=== PATIENT | male | born 1980 | race African-American/Black ===

== ENCOUNTER 2016-12-28 21:30 | Emergency (ER) | payer OTHER ==
[2016-12-28 21:50] VITALS: BMI 24.4
--- NOTE | 2016-12-28 22:27 | PDOC ---
History of Present Illness - General History Source: Patient Exam Limitations: No Limitations - History of Present Illness Initial Comments: 12/28/16 22:27 Patient is a 36-year-old male no significant medical history currently on no medication reports that he has been drinking since 10 AM, smoked a "large amount of marijuana" now complaining of "my throat feels like it's closing and my left arm feels ". Taken to emergency department by family members who were concerned because patient was pacing in the house, and not acting his normal self. Patient denies any chest pain or shortness of breath. Past Medical History: Denies. Allergies: No known allergies Medications: None Family History: Non-contributory Social History: Denies smoking, alcohol use, or IVDU Review of Systems GENERAL/CONSTITUTIONAL: No fever or chills. No weakness. No weight change. HEAD, EYES, EARS, NOSE AND THROAT: No change in vision. No ear pain or discharge. Throat discomfort CARDIOVASCULAR: No chest pain or shortness of breath. RESPIRATORY: No cough, wheezing, or hemoptysis. GASTROINTESTINAL: No nausea, vomiting, diarrhea or constipation. No rectal bleeding. GENITOURINARY: No dysuria, frequency, or change in urination. MUSCULOSKELETAL: No joint or muscle swelling or pain. No neck or back pain. Describe left arm as "feeling " SKIN : No rash or easy bruising. NEUROLOGIC: No headache, vertigo, loss of consciousness, or loss of sensation. PSYCHIATRIC: No depression or anxiety. ENDOCRINE: No increased thirst. No abnormal weight change. HEMATOLOGIC/LYMPHATIC: No anemia, easy bleeding, or history of blood clots. ALLERGIC/IMMUNOLOGIC: No hives or skin allergy. No latex allergy. Physical Exam: GENERAL: The patient is awake, alert, and fully oriented, in no acute distress. HEAD: Normal with no signs of trauma. EYES: Pupils equal, round and reactive to light, extraocular movements intact, sclera anicteric, conjunctiva clear. ENT: Ears normal, nares patent, oropharynx clear without exudates. Moist mucous membranes. No uvula deviation NECK: Normal range of motion, supple without lymphadenopathy, JVD, or masses. LUNGS: Breath sounds equal, clear to auscultation bilaterally. No wheezes, and no crackles. HEART: Regular rate and rhythm, normal S1 and S2 without murmur, rub or gallop. ABDOMEN: Soft, nontender, normoactive bowel sounds. No guarding, no rebound. No masses. No bruising or abrasions MUSCULOSKELETAL: Normal range of motion, no edema. No clubbing or cyanosis. No cords, erythema, or tenderness. No CVA Tenderness with fist. NEUROLOGICAL: Cranial nerves II through XII grossly intact. Normal speech, normal gait. PSYCH: Intoxicated SKIN: Warm, Dry, normal turgor, no rashes or lesions noted. <Rachana Meneses - Last Filed: 12/28/16 22:47> <Aruna Ling - Last Filed: 12/29/16 00:27> <Torey Johnson - Last Filed: 12/29/16 02:29> - General Chief Complaint: Sore Throat Stated Complaint: Throat PAIN Time Seen by Provider: 12/28/16 21:54 Past History - Psycho/Social/Smoking Cessation Hx Anxiety: No Suicidal Ideation: No Smoking History: Current every day smoker Have you smoked in the past 12 months: Yes Number of Cigarettes Smoked Daily: 10 Information on smoking cessation initiated: No Hx Alcohol Use: Yes (SOCIAL) Drug/Substance Use Hx: No Substance Use Type: None <Rachana Meneses - Last Filed: 12/28/16 22:47> <Aruna Ling - Last Filed: 12/29/16 00:27> <Torey Johnson - Last Filed: 12/29/16 02:29> - Past Medical History Allergies/Adverse Reactions: Allergies Allergy/AdvReac Type Severity Reaction Status Date / Time No Known Allergies Allergy Verified 12/28/16 21:41 Home Medications: Ambulatory Orders Pantoprazole Sodium [Protonix] 40 mg PO DAILY #14 tablet. 12/29/16 *Physical Exam - Vital Signs Last Vital Signs Temp Pulse Resp BP Pulse Ox 98.4 F 92 H 16 140/85 98 12/28/16 21:43 12/28/16 21:43 12/28/16 21:43 12/28/16 21:43 12/28/16 21:43 <Rachana Meneses - Last Filed: 12/28/16 22:47> - Vital Signs Last Vital Signs Temp Pulse Resp BP Pulse Ox 98.4 F 92 H 16 140/85 98 12/28/16 21:43 12/28/16 21:43 12/28/16 21:43 12/28/16 21:43 12/28/16 22:31 <SushilAruna - Last Filed: 12/29/16 00:27> - Vital Signs Last Vital Signs Temp Pulse Resp BP Pulse Ox 98.2 F 85 17 138/82 99 12/29/16 02:08 12/29/16 02:08 12/29/16 02:08 12/29/16 02:08 12/29/16 02:08 <Torey Johnson - Last Filed: 12/29/16 02:29> Heart Score/ECG Review #1 12/29/16 00:27 Normal sinus rhythm at 64 bpm Normal ECG <SushilAruna - Last Filed: 12/29/16 00:27> ED Treatment Course - LABORATORY CBC & Chemistry Diagram: 12/28/16 23:15 12/28/16 23:19 - ADDITIONAL ORDERS Additional order review: Laboratory Results 12/28/16 12/28/16 23:19 23:15 INR 1.00 Sodium 139 Potassium 4.4 Chloride 103 Carbon Dioxide 27 Anion Gap 9 BUN 17 Creatinine 1.1 Creat Clearance w eGFR > 60 Random Glucose 94 Calcium 9.3 Total Bilirubin 0.4 AST 22 ALT 27 Alkaline Phosphatase 66 Creatine Kinase 169 Troponin I < 0.02 Total Protein 7.4 Albumin 4.1 12/28/16 23:15 RBC 5.01 MCV 91.4 MCHC 33.3 RDW 13.8 MPV 9.3 Neutrophils % 62.9 Lymphocytes % 24.4 Monocytes % 11.1 H Eosinophils % 0.5 Basophils % 1.1 <SushilAruna - Last Filed: 12/29/16 00:27> - LABORATORY CBC & Chemistry Diagram: 12/28/16 23:15 12/28/16 23:19 - ADDITIONAL ORDERS Additional order review: Laboratory Results 12/28/16 12/28/16 12/28/16 23:19 23:19 23:15 INR 1.00 Sodium 139 Potassium 4.4 Chloride 103 Carbon Dioxide 27 Anion Gap 9 BUN 17 Creatinine 1.1 Creat Clearance w eGFR > 60 Random Glucose 94 Calcium 9.3 Total Bilirubin 0.4 AST 22 ALT 27 Alkaline Phosphatase 66 Creatine Kinase 169 Creatine Kinase Index CK-MB (CK-2) < 1.000 CK-MB (CK-2) Rel Index Cancelled Troponin I < 0.02 Total Protein 7.4 Albumin 4.1 12/28/16 23:15 RBC 5.01 MCV 91.4 MCHC 33.3 RDW 13.8 MPV 9.3 Neutrophils % 62.9 Lymphocytes % 24.4 Monocytes % 11.1 H Eosinophils % 0.5 Basophils % 1.1 <Torey Johnson - Last Filed: 12/29/16 02:29> Medical Decision Making - Medical Decision Making 12/28/16 22:48 A/P: Patient was initially sent to fast-track however admits to being intoxicated and the influence of marijuana. Complaining of throat feeling that it is closing and his left arm "feeling " sent to main emergency department for higher level of care. <Rachana Meneses - Last Filed: 12/28/16 22:47> *DC/Admit/Observation/Transfer <Rachana Meneses - Last Filed: 12/28/16 22:47> <Aruna Ling - Last Filed: 12/29/16 00:27> <Torey Johnson - Last Filed: 12/29/16 02:29> Diagnosis at time of Disposition: Sore throat, Arm paresthesia, left - Discharge Dispostion Disposition: HOME Condition at time of disposition: Stable - Prescriptions Prescriptions: Pantoprazole Sodium [Protonix] 40 mg PO DAILY #14 tablet.dr - Referrals Referrals: [facility] [Provider Group] - Patient Instructions Printed Discharge Instructions: Sore Throat, DI for Gastroesophageal Reflux Disease (GERD), DI for Numbness/tingling
[2016-12-28 23:22] LABS: BASOPHIL 1.1 % (0-2.0); EOSINOPHIL 0.5 % (0-4.5); MCH 30.5 pg (25.7-33.7); MCHC 33.3 g/dl (32.0-35.9); MEAN CELL VOLUME 91.4 fl (80-96); MEAN PLT VOLUME 9.3 fl (7.5-11.1); NEUTROPHILS 62.9 % (42.8-82.8); PLATELET COUNT 212 K/MM3 (134-434); RDW 13.8 % (11.9-15.9); WHITE BLOOD COUNT 6.7 K/mm3 (4.0-10.0)
[2016-12-28 23:47] LABS: PLATELET ESTIMATE ADEQUATE (NORMAL)
[2016-12-28 23:53] LABS: ALBUMIN 4.1 g/dl (3.4-5.0); ANION GAP 9 (8-16); BILIRUBIN,TOTAL 0.4 mg/dL (0.2-1.0); CALCIUM 9.3 mg/dL (8.5-10.1); CO2 27 mmol/L (21-32); CREATININE 1.1 mg/dL (0.7-1.3); GLUCOSE,RANDOM 94 mg/dL (74-106); SGOT/AST 22 U/L (15-37); SGPT/ALT 27 U/L (12-78); TOT PROT 7.4 g/dl (6.4-8.2)
[2016-12-28 23:55] LABS: ALK PHOS 66 U/L (45-117); TROPONIN I < 0.02 ng/ml (0.00-0.05)
--- NOTE | 2016-12-29 01:53 | PDOC ---
*Physical Exam - Vital Signs Last Vital Signs Temp Pulse Resp BP Pulse Ox 98.4 F 92 H 16 140/85 98 12/28/16 21:43 12/28/16 21:43 12/28/16 21:43 12/28/16 21:43 12/28/16 22:31 - Physical Exam Comments: 12/29/16 01:49 Patient was initially seen in fast track and referred to the main ER for further evaluation and treatment. Patient is a 36-year-old male with history of laryngeal reflux and polysubstance abuse who presents to the ER with a globus sensation and paresthesias of the left arm after consuming a large amount of alcohol and smoking a large amount of marijuana. Patient reports that he became distressed and anxious after he was laid off for more. Patient denies chest pain/nausea/ vomiting/diarrhea/abdominal pain. Patient denies dysphagia or odontophagia. Patient is able to tolerate his own secretions. There is no family history of early cardiac . Patient denies suicidal/homicidal ideations. REVIEW OF SYSTEMS CONSTITUTIONAL: No fever, no chills, no fatigue EYES: No visual changes ENT: No ear pain, + sore throat CARDIOVASCULAR: No chest pain, no palpitations RESPIRATORY: No cough, no SOB GI: No abdominal pain, no nausea, no vomiting, no constipation, no diarrhea GENITOURINARY: No dysuria, no frequency, no hematuria MUSKULOSKELETAL: No backpain, no joint pain, no myalgias SKIN: No rash NEURO: No headache; + left arm paresthesias EXAMINATION CONSTITUTIONAL: Awake and alert; well-nourished; alcohol on breath; in no apparent distress HEAD: Normocephalic; atraumatic EYES: PERRL; EOM intact; conjunctiva are injected bilaterally; ENMT: External appears normal; oropharynx is erythematous without tonsillar hypertrophy or exudate; uvula is midline and is nonedematous; there is no stridor; NECK: Supple; non-tender; no cervical lymphadenopathy CARD: Normal S1, S2; no murmurs, rubs, or gallops RESP: Normal chest excursion with respiration; breath sounds clear and equal bilaterally; no wheezes, rhonchi, or rales ABD: Soft, non-distended; non-tender; no palpable organomegaly, no palpable hernias EXT: Normal ROM in all four extremities; non-tender to palpation; distal pulses intact bilaterally to upper and lower extremities SKIN: Warm, dry, no rash NEURO: cranial nerves II through XII are grossly intact; motor is 5 of 54; gait is stable ED Treatment Course - LABORATORY CBC & Chemistry Diagram: 12/28/16 23:15 12/28/16 23:19 - ADDITIONAL ORDERS Additional order review: Laboratory Results 12/28/16 12/28/16 12/28/16 23:19 23:19 23:15 INR 1.00 Sodium 139 Potassium 4.4 Chloride 103 Carbon Dioxide 27 Anion Gap 9 BUN 17 Creatinine 1.1 Creat Clearance w eGFR > 60 Random Glucose 94 Calcium 9.3 Total Bilirubin 0.4 AST 22 ALT 27 Alkaline Phosphatase 66 Creatine Kinase 169 Creatine Kinase Index CK-MB (CK-2) < 1.000 CK-MB (CK-2) Rel Index Cancelled Troponin I < 0.02 Total Protein 7.4 Albumin 4.1 12/28/16 23:15 RBC 5.01 MCV 91.4 MCHC 33.3 RDW 13.8 MPV 9.3 Neutrophils % 62.9 Lymphocytes % 24.4 Monocytes % 11.1 H Eosinophils % 0.5 Basophils % 1.1 Medical Decision Making - Medical Decision Making 12/29/16 01:52 Patient is a 36-year-old male who presents to the ER with globus sensation left arm paresthesias that have now resolved. EKG is within normal limit. Cardiac enzymes are unremarkable. Given the onset of symptoms more than 6 hours, ACS/ acute FL highly unlikely. Patient is able to verbalize without difficulty and there is no evidence of dysphonia or stridor at this time. Will discharge with a 2 week course of Protonix po, and PMD follow-up as needed. Patient also advised that the harm of substance abuse and has expressed understanding. *DC/Admit/Observation/Transfer Diagnosis at time of Disposition: Sore throat, Paresthesia of left upper extremity - Discharge Dispostion Disposition: HOME Condition at time of disposition: Stable - Referrals Referrals: [facility] [Provider Group] - Patient Instructions Printed Discharge Instructions: Sore Throat, DI for Gastroesophageal Reflux Disease (GERD), DI for Numbness/tingling
[2016-12-29 02:09] VITALS: BP 138/82; PULSE 85; TEMP 98.2
--- NOTE | 2016-12-29 16:32 | EKG ---
Test Reason : Blood Pressure : / mmHG Vent. Rate : 064 BPM Atrial Rate : 064 BPM P-R Int : 148 ms QRS Dur : 088 ms QT Int : 366 ms P-R-T Axes : 063 065 046 degrees QTc Int : 377 ms NORMAL SINUS RHYTHM NORMAL ECG NO PREVIOUS ECGS AVAILABLE Confirmed by ALLI CASTELAN MD ([id number]) on 12/29/2016 4:32:17 PM Referred By: Confirmed By:ALLI CASTELAN MD
== END 2016-12-29 02:10 | disposition home or self-care (01) ==
LOC: JER 21:30 → JERFT 21:30 → JER 12-29 02:10
DX: J02.9 Acute pharyngitis, unspecified (principal); R20.8 Other disturbances of skin sensation
CPT/HCPCS: 36415; 80053; 82550; 82553; 84484; 85025; 85610; 93005; 93010; 99283-25

== ENCOUNTER 2018-08-29 14:29 | Inpatient (IN) | payer OTHER ==
[2018-08-29 19:43] VITALS: BMI 23.7
--- NOTE | 2018-08-29 20:55 | HP ---
CIWA Score - Admission Criteria [facility] Guidelines: Admission for Medically Managed Detox: Requires at least one of the followin. CIWA greater than 12 2. Seizures within the past 24 hours 3. Delirium tremens within the past 24 hours 4. Hallucinations within the past 24 hours 5. Acute intervention needed for co occurring medical disorder 6. Acute intervention needed for co occurring psychiatric disorder 7. Severe withdrawal that cannot be handled at a lower level of care (continued vomiting, continued diarrhea, abnormal vital signs) requiring intravenous medication and/or fluids 8. Admission ROS [facility] - HPI Chief Complaint: Seeking admission to Rehab. Allergies/Adverse Reactions: Allergies Allergy/AdvReac Type Severity Reaction Status Date / Time No Known Allergies Allergy Verified 08/29/18 21:13 History of Present Illness: 38 years old male with 5 months of PCP dependence is seeking admission to Rehab. This is his first admission to [facility] and first time in inpatient Rehabilitation facility. He denies past medical history and denies suicide attempt/ ideation at this time. His drug screen result was all negative. Exam Limitations: No Limitations - Ebola screening Have you traveled outside of the country in the last 21 days: No Have you had contact with anyone from an Ebola affected area: No Have you been sick,other than usual withdrawal symptoms: No Do you have a fever: No - Review of Systems Constitutional: No Symptoms Reported EENT: reports: No Symptoms Reported Respiratory: reports: No Symptoms reported Cardiac: reports: No Symptoms Reported GI: reports: No Symptoms Reported : reports: No Symptoms Reported Musculoskeletal: reports: No Symptoms Reported Integumentary: reports: No Symptoms Reported Neuro: reports: No Symptoms reported Endocrine: reports: No Symptoms Reported Hematology: reports: No Symptoms Reported Psychiatric: reports: No Sypmtoms Reported, Mood/Affect Appropiate, Orientated x3 Other Systems: Reviewed and Negative Patient History - Patient Medical History Hx Anemia: No Hx Asthma: No Hx Chronic Obstructive Pulmonary Disease (COPD): No Hx Cancer: No Hx Cardiac Disorders: No Hx Congestive Heart Failure: No Hx Hypertension: No Hx Hypercholesterolemia: No Hx Pacemaker: No HX Cerebrovascular Accident: No Hx Seizures: No Hx Dementia: No Hx Diabetes: No Hx Gastrointestinal Disorders: No Hx Liver Disease: No Hx Genitourinary Disorders: No Hx Sexually Transmitted Disorders: No Hx Renal Disease (ESRD): No Hx Thyroid Disease: No Hx Human Immunodeficiency Virus (HIV): No Hx Hepatitis C: No Hx Depression: No Hx Suicide Attempt: No Hx Bipolar Disorder: No Hx Schizophrenia: No - Patient Surgical History Past Surgical History: No - PPD History Previous Implant?: No Documented Results: Negative w/o proof Implanted On Prior R Admission?: No PPD to be Administered?: Yes - Reproductive History Patient is a Female of Child Bearing Age (11 -55 yrs old): No (MALE) - Smoking Cessation Smoking history: Current every day smoker Have you smoked in the past 12 months: Yes Aproximately how many cigarettes per day: 10 Hx Chewing Tobacco Use: No Initiated information on smoking cessation: Yes 'Breaking Loose' booklet given: 08/29/18 - Substance & Tx. History Hx Alcohol Use: No Hx Substance Use: No Substance Use Type: Tranquilizers Hx Substance Use Treatment: No - Substances Abused PCP Route: Smoking Frequency: 1-2 times per week Amount used: $20 Age of first use: 37 Date of Last Use: 08/15/18 Family Disease History - Family Disease History Family History: Denies Admission Physical Exam [facility] - Vital Signs Vital Signs: Vital Signs - 24 hr 08/29/18 19:41 Temperature 97 F L Pulse Rate 81 Respiratory 18 Rate Blood Pressure 144/85 - Physical General Appearance: Yes: Within Normal Limits HEENTM: Yes: EOMI, Normal ENT Inspection, Normal Voice, SIMA Respiratory: Yes: Lungs Clear, Normal Breath Sounds, No Respiratory Distress Neck: Yes: Supple Breast: Yes: Breast Exam Deferred Cardiology: Yes: Regular Rhythm, Regular Rate Abdominal: Yes: Normal Bowel Sounds Genitourinary: Yes: Within Normal Limits Back: Yes: Normal Inspection Musculoskeletal: Yes: Within Normal Limits Extremities: Yes: Normal Inspection Neurological: Yes: Alert, Normal Mood/Affect Integumentary: Yes: Warm Lymphatic: Yes: Within Normal Limits - Diagnostic (1) PCP dependence Current Visit: Yes Status: Chronic (2) Nicotine dependence Current Visit: Yes Status: Chronic Qualifiers: Nicotine product type: cigarettes Substance use status: uncomplicated Qualified Code(s): F17.210 - Nicotine dependence, cigarettes, uncomplicated Cleared for Admission [facility] - Detox or Rehab [facility] Level of Care: Observation Bed Claeared for Rehab Admission: Yes [facility] Breath Alcohol Content Breath Alcohol Content: 0 Urine Drug Screen - Results Drug Screen Negative: Yes Inpatient Rehab Admission - Rehab Decision to Admit Inpatient rehab admission?: Yes - Initial Determination Are CD services needed?: No Free of communicable disease: Yes Not in need of hospitalization: Yes - Rehab Admission Criteria Previous failed treatment: No Poor recovery environment: Yes Comorbidities: No Lacks judgement: No Patient is meeting Inpatient Rehab admission criteria:: Yes
[2018-08-29] MEDS ORDERED: MAG HYDROX/AL HYDROX/SIMETH 30 ML UNIT-DOSE CUP PO PRN (21:00)
[2018-08-29] MEDS ORDERED: guaiFENesin 200 MG/10 ML 10 ML UNIT-DOSE CUPS PO PRN (21:00)
[2018-08-29] MEDS ORDERED: NICOTINE POLACRILEX 2 MG GUM BC PRN (21:00)
[2018-08-29] MEDS ORDERED: P-EPHED 60MG/TRIPROLIDI 2.5MG TABLET PO PRN (21:00)
[2018-08-29] MEDS ORDERED: MAGNESIUM HYDROX 2400MG/30ML ORAL SUSPENSION 30 ML CUP PO PRN (21:00)
[2018-08-29] MEDS ORDERED: MAGNESIUM CITRATE 300 ML BOTTLE PO PRN (21:00)
[2018-08-29] MEDS ORDERED: IBUPROFEN 400 MG TABLET (FP) PO PRN (21:00)
[2018-08-29] MEDS ORDERED: LOPERAMIDE HCL 2 MG CAPSULE PO PRN (21:00)
[2018-08-29] MEDS ORDERED: ACETAMINOPHEN 325 MG TABLET (FP) PO PRN (21:00)
[2018-08-29] MEDS ORDERED: MENTHOL/PHENOL 1 EACH UD MM PRN (21:00)
[2018-08-29] MEDS ORDERED: MELATONIN 5 MG TABLETS PO PRN (22:00)
[2018-08-30] MEDS ORDERED: TUBERCULIN PPD 5 TU/0.1ML VIAL ID ONE (06:15)
[2018-08-30] MEDS: PRENATAL VITAMINS W/ FOLIC ACID TABLET (FP) PO SCH (10:56)
[2018-08-30] MEDS: BACITRACIN 15 GM TUBE TOPICAL OINTMENT TP SCH (10:56)
[2018-08-30] MEDS: NICOTINE 14 MG/24 HOURS TOPICAL PATCH TD SCH (10:56)
--- NOTE | 2018-08-30 11:03 | EKG ---
Test Reason : Blood Pressure : / mmHG Vent. Rate : 074 BPM Atrial Rate : 074 BPM P-R Int : 148 ms QRS Dur : 084 ms QT Int : 364 ms P-R-T Axes : 071 077 064 degrees QTc Int : 404 ms NORMAL SINUS RHYTHM NORMAL ECG WHEN COMPARED WITH ECG OF 28-DEC-2016 23:42, NO SIGNIFICANT CHANGE WAS FOUND Confirmed by ALLI CASTELAN MD ([id number]) on 08/30/2018 11:02:46 AM Referred By: Confirmed By:ALLI CASTELAN MD
--- NOTE | 2018-08-30 13:32 | PN ---
S Progress Note Note: Patient refusing lab draw this AM. He was called to speak to this provider to discuss reasons her refused and so that I could provide explanations about the need for lab draw for care. Client refused to speak with provider.
[2018-08-30] MEDS: THIAMINE HCL 100 MG TABLET (FP) PO SCH ×2 (22:07)
[2018-08-31] MEDS: BACITRACIN 15 GM TUBE TOPICAL OINTMENT TP SCH (10:17)
[2018-08-31] MEDS: PRENATAL VITAMINS W/ FOLIC ACID TABLET (FP) PO SCH (10:18)
[2018-08-31] MEDS: NICOTINE 14 MG/24 HOURS TOPICAL PATCH TD SCH (10:18)
[2018-08-31] MEDS: THIAMINE HCL 100 MG TABLET (FP) PO SCH (21:39)
[2018-09-01] MEDS ORDERED: BACITRACIN 0.9 GM PACKET TP SCH (10:23)
[2018-09-01] MEDS: PRENATAL VITAMINS W/ FOLIC ACID TABLET (FP) PO SCH (10:59)
[2018-09-01] MEDS: NICOTINE 14 MG/24 HOURS TOPICAL PATCH TD SCH (10:59)
[2018-09-01] MEDS: BACITRACIN 15 GM TUBE TOPICAL OINTMENT TP SCH (12:15)
[2018-09-01] MEDS: THIAMINE HCL 100 MG TABLET (FP) PO SCH (21:46)
[2018-09-02 06:40] VITALS: BP 103/65; PULSE 53; TEMP 97.8
[2018-09-02] MEDS: NICOTINE 14 MG/24 HOURS TOPICAL PATCH TD SCH (10:54)
[2018-09-02] MEDS: PRENATAL VITAMINS W/ FOLIC ACID TABLET (FP) PO SCH (10:54)
--- NOTE | 2018-09-02 17:28 | PN ---
[facility] Progress Note Note: DISCHARGE: Patient left AMA. Did not wait to see provider. Informed that patient left unit alert, oriented, w/ steady gait. Admitted w/ PCP and nicotine use disorder. Patient refused admission labs. Vital Signs - 24 hr 09/02/18 09/02/18 03:30 06:40 Temperature 97.8 F Pulse Rate 53 L Respiratory 18 18 Rate Blood Pressure 103/65 Patient discharged AMA.
== END 2018-09-02 05:20 | disposition left against medical advice (07) | DRG 770 ==
LOC: YASAS 14:29 → Y3W 20:41
PROVIDERS: ADMIT Neuromusculoskeletal Medicine & OMM; ATTEND Neuromusculoskeletal Medicine & OMM
PROC: HZ42ZZZ Group Counseling for Substance Abuse Treatment, Cognitive-Behavioral (ICD-10-PCS; principal; 2018-08-29)
DX: F16.20 Hallucinogen dependence, uncomplicated (principal); F17.210 Nicotine dependence, cigarettes, uncomplicated
CPT/HCPCS: 93005; 93010

== ENCOUNTER 2019-01-11 19:30 | Inpatient (IN) | payer OTHER ==
[2019-01-11 20:51] VITALS: BMI 20.3
--- NOTE | 2019-01-11 21:29 | HP ---
CIWA Score Nausea/Vomitin Muscle Tremors: 3 Anxiety: 3 Agitation: 4-Moderately Restless Paroxysmal Sweats: 2 Orientation: 0-Oriented Tacttile Disturbances: 0-None Auditory Disturbances: 0-None Visual Disturbances: 0-None Headache: 0-None Present CIWA-Ar Total Score: 14 - Admission Criteria [facility]ASAS Guidelines: Admission for Medically Managed Detox: Requires at least one of the followin. CIWA greater than 12 2. Seizures within the past 24 hours 3. Delirium tremens within the past 24 hours 4. Hallucinations within the past 24 hours 5. Acute intervention needed for co occurring medical disorder 6. Acute intervention needed for co occurring psychiatric disorder 7. Severe withdrawal that cannot be handled at a lower level of care (continued vomiting, continued diarrhea, abnormal vital signs) requiring intravenous medication and/or fluids 8. Admission ROS [facility] Chief Complaint: ALCOHOL WITHDRAWAL SYMPTOMS Allergies/Adverse Reactions: Allergies Allergy/AdvReac Type Severity Reaction Status Date / Time No Known Allergies Allergy Verified 01/11/19 20:46 History of Present Illness: 38 years old male with a long history of alcohol dependence (since age 11 years ) is seeking admission to detox. Patient has been in previous detox and reports insignificant period of sobriety. He denies past medical history and suicidal ideation at this time. - Ebola screening Have you traveled outside of the country in the last 21 days: No (N) Have you had contact with anyone from an Ebola affected area: No Do you have a fever: No - Review of Systems Constitutional: Malaise, Unexplained wgt Loss EENT: reports: No Symptoms Reported Respiratory: reports: No Symptoms reported Cardiac: reports: No Symptoms Reported GI: reports: Diarrhea (x 2), Nausea, Poor Fluid Intake, Abdominal cramping : reports: No Symptoms Reported Musculoskeletal: reports: Back Pain, Joint Pain, Muscle Pain, Muscle Weakness Integumentary: reports: Dryness, Flushing Neuro: reports: Tremors Endocrine: reports: No Symptoms Reported Hematology: reports: No Symptoms Reported Psychiatric: reports: No Sypmtoms Reported, Orientated x3 Other Systems: Reviewed and Negative Patient History - Patient Medical History Hx Anemia: No Hx Asthma: No Hx Chronic Obstructive Pulmonary Disease (COPD): No Hx Cancer: No Hx Cardiac Disorders: No Hx Congestive Heart Failure: No Hx Hypertension: No Hx Hypercholesterolemia: No Hx Pacemaker: No HX Cerebrovascular Accident: No Hx Seizures: No Hx Dementia: No Hx Diabetes: No Hx Gastrointestinal Disorders: No Hx Liver Disease: No Hx Genitourinary Disorders: No Hx Sexually Transmitted Disorders: No Hx Renal Disease (ESRD): No Hx Thyroid Disease: No Hx Human Immunodeficiency Virus (HIV): No (Negative 2018) Hx Hepatitis C: No Hx Depression: No Hx Suicide Attempt: No Hx Bipolar Disorder: No Hx Schizophrenia: No - Patient Surgical History Past Surgical History: No Hx Neurologic Surgery: No Hx Cataract Extraction: No Hx Cardiac Surgery: No Hx Lung Surgery: No Hx Abdominal Surgery: No Hx Appendectomy: No Hx Cholecystectomy: No Hx Genitourinary Surgery: No Hx Orthopedic Surgery: No Anesthesia Reaction: No - PPD History Previous Implant?: Yes Documented Results: Negative w/proof Implanted On Prior R Admission?: Yes Date: 09/01/18 PPD to be Administered?: Yes - Reproductive History Patient is a Female of Child Bearing Age (11 -55 yrs old): No (male) - Smoking Cessation Smoking history: Current every day smoker Have you smoked in the past 12 months: Yes Aproximately how many cigarettes per day: 10 Hx Chewing Tobacco Use: No Initiated information on smoking cessation: Yes 'Breaking Loose' booklet given: 01/11/19 - Substance & Tx. History Hx Alcohol Use: Yes Hx Substance Use: Yes Substance Use Type: Alcohol, Marijuana - Substances abused PCP Substance route: Smoking Frequency: Daily Amount used: 20 dollars Age of first use: 38 Date of last use: 01/10/19 Marijuana/Hashish Substance route: Smoking Frequency: Daily Amount used: whenever 'I get money' Age of first use: 13 Date of last use: 01/10/19 Alcohol Substance route: Oral Frequency: Daily Amount used: 10 bottles of beer/ 3 pints [place] liquor. Age of first use: 13 Date of last use: 01/11/19 Family Disease History - Family Disease History Family History: Denies Admission Physical Exam [facility] - Vital Signs Vital Signs: Vital Signs - 24 hr 01/11/19 20:36 Temperature 99.7 F H Pulse Rate 85 Respiratory 17 Rate Blood Pressure 128/77 - Physical General Appearance: Yes: Tremorous, Anxious HEENTM: Yes: Within Normal Limits Respiratory: Yes: Lungs Clear, Normal Breath Sounds, No Respiratory Distress Neck: Yes: Supple Breast: Yes: Breast Exam Deferred Cardiology: Yes: Regular Rhythm, Regular Rate Abdominal: Yes: Normal Bowel Sounds Genitourinary: Yes: Within Normal Limits Back: Yes: Normal Inspection Musculoskeletal: Yes: Back pain, Muscle Pain Extremities: Yes: Tremors Neurological: Yes: Within Normal Limits Integumentary: Yes: Warm Lymphatic: Yes: Within Normal Limits - Diagnostic (1) Alcohol dependence with uncomplicated withdrawal Current Visit: Yes Status: Chronic (2) Marijuana dependence Current Visit: Yes Status: Chronic (3) Nicotine dependence Current Visit: Yes Status: Chronic Qualifiers: Nicotine product type: cigarettes Substance use status: uncomplicated Qualified Code(s): F17.210 - Nicotine dependence, cigarettes, uncomplicated (4) PCP dependence Current Visit: Yes Status: Chronic Cleared for Admission S - Detox or Rehab S Level of Care: Medically Managed Detox Regimen/Protocol: Librium Breathalyzer - Breathalyzer Breathalyzer: 0 Urine Drug Screen - Test Device Lot number: [id number] Expiration date: 10/09/20 - Control Is test valid?: Yes - Results Drug screen NEGATIVE: No Urine drug screen results: THC-Marijuana Inpatient Rehab Admission - Rehab Decision to Admit Inpatient rehab admission?: No
[2019-01-11] MEDS ORDERED: MAG HYDROX/AL HYDROX/SIMETH 30 ML UNIT-DOSE CUP PO PRN (21:38)
[2019-01-11] MEDS ORDERED: chlordiazePOXIDE HCL 25 MG CAPSULE PO PRN (21:38)
[2019-01-11] MEDS ORDERED: MENTHOL/PHENOL 1 EACH UD MM PRN (21:38)
[2019-01-11] MEDS ORDERED: IBUPROFEN 400 MG TABLET (FP) PO PRN (21:38)
[2019-01-11] MEDS ORDERED: ACETAMINOPHEN 325 MG TABLET (FP) PO PRN ×2 (21:38)
[2019-01-11] MEDS ORDERED: MAGNESIUM HYDROX 2400MG/30ML ORAL SUSPENSION 30 ML CUP PO PRN (21:38)
[2019-01-11] MEDS ORDERED: NICOTINE POLACRILEX 2 MG GUM BUC PRN (21:38)
[2019-01-11] MEDS ORDERED: MELATONIN 5 MG TABLETS PO PRN (21:38)
[2019-01-11] MEDS ORDERED: METHOCARBAMOL 500 MG TABLET PO PRN (21:38)
[2019-01-11] MEDS ORDERED: BISMUTH SUBSALICYLATE 524 MG/30 ML UD PO PRN (21:38)
[2019-01-11] MEDS ORDERED: hydrOXYzine HCL 25 MG TABLET (FP) PO PRN (21:38)
[2019-01-11] MEDS ORDERED: MAGNESIUM CITRATE 300 ML BOTTLE PO PRN (21:38)
[2019-01-11] MEDS ORDERED: THIAMINE HCL 100 MG TABLET (FP) PO SCH (22:00)
[2019-01-11] MEDS: chlordiazePOXIDE HCL 25 MG CAPSULE PO SCH (22:48)
[2019-01-12] MEDS: chlordiazePOXIDE HCL 25 MG CAPSULE PO SCH ×3 (06:12→17:20)
[2019-01-12] MEDS ORDERED: NICOTINE 14 MG/24 HOURS TOPICAL PATCH TD SCH (10:00)
[2019-01-12] MEDS ORDERED: PRENATAL VITAMINS W/ FOLIC ACID TABLET (FP) PO SCH (10:00)
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
[2019-01-12 17:20] VITALS: BP 107/63; PULSE 61; TEMP 97
--- NOTE | 2019-01-12 18:31 | PN ---
[facility] Progress Note Note: patient did not want to complete treatment,all attempts to convince patient to stay with no avail,did not want to wait, signed release AMA
--- NOTE | 2019-01-12 18:33 | DS ---
[facility] Detox Discharge Summary Admission Date: 01/11/19 Discharge Date: 01/12/19 - History Present History: Alcohol Dependence, Cannabis Dependence, Pcp Dependence Additional Comments: patient left ama did not want to wait - Physical Exam Results Vital Signs: Vital Signs Temperature 97 F L 01/12/19 17:16 Pulse Rate 61 01/12/19 17:16 Respiratory Rate 16 01/12/19 17:16 Blood Pressure 107/63 01/12/19 17:16 O2 Sat by Pulse Oximetry (%) Pertinent Admission Physical Exam Findings: withdrawal signs and symptom Vital Signs Temperature 97 F L 01/12/19 17:16 Pulse Rate 61 01/12/19 17:16 Respiratory Rate 16 01/12/19 17:16 Blood Pressure 107/63 01/12/19 17:16 O2 Sat by Pulse Oximetry (%) - Medication Discharge Medications: Ambulatory Orders NK [No Known Home Medication] 12/02/18 - Diagnosis (1) Alcohol dependence with uncomplicated withdrawal Current Visit: Yes Status: Chronic (2) Marijuana dependence Current Visit: Yes Status: Chronic (3) Nicotine dependence Current Visit: Yes Status: Chronic Qualifiers: Nicotine product type: cigarettes Substance use status: uncomplicated Qualified Code(s): F17.210 - Nicotine dependence, cigarettes, uncomplicated (4) PCP dependence Current Visit: Yes Status: Chronic - AMA Did Patient Leave Against Medical Advice: Yes
[2019-01-13] MEDS ORDERED: chlordiazePOXIDE HCL 25 MG CAPSULE PO SCH (05:00)
--- NOTE | 2019-01-13 09:17 | EKG ---
Test Reason : Blood Pressure : / mmHG Vent. Rate : 073 BPM Atrial Rate : 073 BPM P-R Int : 144 ms QRS Dur : 088 ms QT Int : 378 ms P-R-T Axes : 067 067 048 degrees QTc Int : 416 ms NORMAL SINUS RHYTHM VOLTAGE CRITERIA FOR LEFT VENTRICULAR HYPERTROPHY ABNORMAL ECG WHEN COMPARED WITH ECG OF 29-AUG-2018 21:58, NO SIGNIFICANT CHANGE WAS FOUND Confirmed by BRENNEN WONG MD ([id number]) on 01/13/2019 9:17:25 AM Referred By: Anni Ramirez Confirmed By:BRENNEN WONG MD
[2019-01-14] MEDS ORDERED: chlordiazePOXIDE HCL 10 MG CAPSULE PO PRN
[2019-01-14] MEDS ORDERED: chlordiazePOXIDE HCL 10 MG CAPSULE PO SCH (05:00)
[2019-01-15] MEDS ORDERED: chlordiazePOXIDE HCL 10 MG CAPSULE PO SCH (05:00)
[2019-01-16] MEDS ORDERED: chlordiazePOXIDE HCL 10 MG CAPSULE PO ONE (05:00)
== END 2019-01-12 19:30 | disposition left against medical advice (07) | DRG 770 ==
LOC: YASAS 19:30 → Y3N 22:06
PROVIDERS: ADMIT Surgery; ATTEND Surgery
PROC: HZ2ZZZZ Detoxification Services for Substance Abuse Treatment (ICD-10-PCS; principal; 2019-01-11)
DX: F10.230 Alcohol dependence with withdrawal, uncomplicated (principal); F16.20 Hallucinogen dependence, uncomplicated; F12.20 Cannabis dependence, uncomplicated; F17.210 Nicotine dependence, cigarettes, uncomplicated
CPT/HCPCS: 93005; 93010

== ENCOUNTER 2019-05-14 15:32 | Emergency (ER) | payer SELFPAY ==
[2019-05-14 15:47] VITALS: BP 101/71; PULSE 89; TEMP 98; BMI 53.8
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
[2019-05-14] MEDS ORDERED: IBUPROFEN 400 MG TABLET (FP) PO ONE (16:27)
== END 2019-05-14 16:35 | disposition home or self-care (01) ==
LOC: JERFT 15:32
DX: R07.9 Chest pain, unspecified (principal); Y04.2XXA Assault by strike against or bumped into by another person, initial encounter; Y93.89 Activity, other specified; Y92.239 Unspecified place in hospital as the place of occurrence of the external cause; F17.210 Nicotine dependence, cigarettes, uncomplicated
CPT/HCPCS: 71046-TC-FY; 99281-25

== ENCOUNTER 2022-02-18 00:50 | Emergency (ER) | payer OTHER ==
[2022-02-18 01:18] VITALS: BP 131/78; PULSE 75; RESP 18; TEMP 98.1; BMI 22.8
[2022-02-18] MEDS ORDERED: IBUPROFEN 400 MG TABLET (FP) PO ONE ×2 (02:20→02:47)
[2022-02-18] MEDS ORDERED: LIDOCAINE 5% TOPICAL PATCH TP ONE (02:20)
[2022-02-18] MEDS ORDERED: ACETAMINOPHEN 325 MG TABLET (FP) PO ONE (02:42)
[2022-02-18] MEDS ORDERED: ACETAMINOPHEN 325 MG TABLET (FP) ONE (02:47)
[2022-02-18] MEDS ORDERED: LIDOCAINE 5% TOPICAL PATCH ONE (02:48)
[2022-02-18] MEDS ORDERED: LIDOCAINE PATCH REMOVAL MC SCH (22:00)
== END 2022-02-18 03:46 | disposition home or self-care (01) ==
LOC: JER 00:50
DX: M25.512 Pain in left shoulder (principal)
CPT/HCPCS: 73030-TC-LT-FY; 93005; 93010; 99284-25

== ENCOUNTER 2022-11-24 00:52 | Emergency (ER) | payer OTHER ==
[2022-11-24 01:09] VITALS: BP 123/71; PULSE 86; RESP 18; TEMP 97.5; BMI 24.9
== END 2022-11-24 02:52 | disposition home or self-care (01) ==
LOC: JER 00:52
DX: F10.929 Alcohol use, unspecified with intoxication, unspecified (principal); F16.10 Hallucinogen abuse, uncomplicated
CPT/HCPCS: 99283-25

== ENCOUNTER 2023-01-31 06:19 | Inpatient (IN) | payer OTHER ==
[2023-01-31 06:54] VITALS: BMI 22.4
[2023-01-31] MEDS ORDERED: LOPERAMIDE HCL 2 MG CAPSULE PO PRN (08:56)
[2023-01-31] MEDS ORDERED: BENZONATATE 200 MG CAPSULE PO PRN (08:56)
[2023-01-31] MEDS ORDERED: ACETAMINOPHEN 325 MG TABLET (FP) PO PRN (08:56)
[2023-01-31] MEDS ORDERED: hydrOXYzine PAMOATE 25 MG CAPSULE (FP) PO PRN (08:56)
[2023-01-31] MEDS ORDERED: POLYETHYLENE GLYCOL (HEALTHYLAX) 3350 17 GM PACKET PO PRN (08:56)
[2023-01-31] MEDS ORDERED: NALOXONE HCL 0.4 MG/ML VIAL IM PRN (08:56)
[2023-01-31] MEDS ORDERED: BENZOCAINE/MENTHOL (CHLORASEPTIC ) LOZENGE MM PRN (08:56)
[2023-01-31] MEDS ORDERED: COLLOIDAL OATMEAL 1 BAR EACH TP PRN (08:56)
[2023-01-31] MEDS ORDERED: guaiFENesin 600 MG TABLET.ER (FP) PO PRN (08:56)
[2023-01-31] MEDS ORDERED: NALOXONE HCL (KLOXXADO) 8 MG SPRAY NS PRN (08:56)
[2023-01-31] MEDS ORDERED: MAGNESIUM HYDROX 2400MG/30ML ORAL SUSPENSION 30 ML CUP PO PRN (08:56)
[2023-01-31] MEDS ORDERED: AMMONIUM LACTATE 12% LOTION 225 GM BOTTLE TP PRN (08:56)
[2023-01-31] MEDS ORDERED: IBUPROFEN 400 MG TABLET (FP) PO PRN (08:56)
[2023-01-31] MEDS ORDERED: IBUPROFEN 600 MG TABLET (FP) PO PRN (08:56)
[2023-01-31] MEDS ORDERED: MAG HYDROX/AL HYDROX/SIMETH 30 ML UNIT-DOSE CUP PO PRN (08:56)
[2023-01-31] MEDS ORDERED: NICOTINE POLACRILEX 2 MG GUM ONE (09:32)
[2023-01-31] MEDS ORDERED: PRENATAL VITAMINS W/ FOLIC ACID TABLET (FP) PO ONE (09:32)
[2023-01-31] MEDS: NICOTINE POLACRILEX 2 MG GUM BUC PRN (09:37)
[2023-01-31] MEDS ORDERED: PRENATAL VITAMINS W/ FOLIC ACID TABLET (FP) PO SCH (10:00)
[2023-01-31] MEDS ORDERED: NICOTINE 7 MG/24 HOURS TOPICAL PATCH TD SCH (10:00)
[2023-01-31] MEDS ORDERED: TUBERCULIN PPD 5 TU/0.1ML SYRINGE (IN PATIENT USE ONLY) ID ONE (10:00)
[2023-01-31] MEDS ORDERED: TUBERCULIN PPD 5 TU/0.1ML VIAL ID ONE (10:03)
[2023-01-31 12:48] LABS: HEMATOCRIT 45.1 % (35.4-49); HEMOGLOBIN 15.1 GM/dL (11.7-16.9); MCH 29.9 pg (25.7-33.7); MCHC 33.4 g/dl (32.0-35.9); MEAN CELL VOLUME 89.3 fl (80-96); MEAN PLT VOLUME 8.9 fl (7.5-11.1); PLATELET COUNT 203 10^3/uL (134-434); RBC 5.05 M/mm3 (4.00-5.60); RDW 14.6 % (11.9-15.9); WHITE BLOOD COUNT 5.5 K/mm3 (4.0-10.0)
[2023-01-31 12:55] LABS: POTASSIUM 3.8 mmol/L (3.5-5.1)
[2023-01-31 12:57] LABS: CALCIUM 9.1 mg/dL (8.5-10.1)
[2023-01-31 12:58] LABS: ALBUMIN 3.7 g/dl (3.4-5.0)
[2023-01-31 13:00] LABS: BLOOD UREA NITROGEN 12.8 mg/dL (7-18)
[2023-01-31 13:01] LABS: CREATININE 1.2 mg/dL (0.55-1.3)
[2023-01-31 13:03] LABS: BILIRUBIN,TOTAL 0.3 mg/dL (0.2-1)
[2023-01-31 13:05] LABS: TOT PROT 6.8 g/dl (6.4-8.2)
[2023-01-31] MEDS ORDERED: MELATONIN 5 MG TABLETS PO SCH (22:00)
[2023-01-31] MEDS ORDERED: THIAMINE HCL 100 MG TABLET (FP) PO SCH (22:00)
[2023-02-01] MEDS: NICOTINE POLACRILEX 2 MG GUM BUC PRN (06:37)
[2023-02-01 07:06] VITALS: BP 125/78; PULSE 56; RESP 16; TEMP 97.7
[2023-02-01 09:35] LABS: EPI CELLS >36 /uL (0-25.1); HYALINE CASTS 1 /uL (0-3.1); PH,URINE 5.5 (5.0-8.0); URINE APPEARANCE CLEAR; URINE BACTERIA 23 /uL (0-1359); URINE BILIRUBIN NEGATIVE (NEGATIVE); URINE COLOR YELLOW; URINE GLUCOSE (UA) NEGATIVE (NEGATIVE); URINE KETONE NEGATIVE (NEGATIVE); URINE LEUK ESTERASE 2+ (NEGATIVE); URINE NITRITE NEGATIVE (NEGATIVE); URINE PROTEIN NEGATIVE (NEGATIVE); URINE RBC 1 /uL (0-23.9); URINE UROBILINOGEN 0.2 mg/dL (0.2-1.0); URINE WBC 262 /uL (0-25.8)
== END 2023-02-01 07:58 | disposition left against medical advice (07) | DRG 770 ==
LOC: YASAS 06:19 → Y3W 09:26
PROVIDERS: ADMIT Allergy & Immunology; ATTEND Psychiatry & Neurology Pain Medicine
PROC: HZ42ZZZ Group Counseling for Substance Abuse Treatment, Cognitive-Behavioral (ICD-10-PCS; principal; 2023-01-31)
DX: F10.10 Alcohol abuse, uncomplicated (principal); F16.20 Hallucinogen dependence, uncomplicated; F17.210 Nicotine dependence, cigarettes, uncomplicated; Z28.310 Unvaccinated for COVID-19; Z28.9 Immunization not carried out for unspecified reason
CPT/HCPCS: 36415; 80053; 81003; 85027; 86780; 87635; 87811

== ENCOUNTER 2023-02-19 23:15 | Inpatient (IN) | payer OTHER ==
[2023-02-19 23:50] VITALS: BMI 23.1
[2023-02-20] MEDS ORDERED: NALOXONE HCL 0.4 MG/ML VIAL IM PRN (00:33)
[2023-02-20] MEDS ORDERED: METHOCARBAMOL 500 MG TABLET PO PRN (00:33)
[2023-02-20] MEDS ORDERED: guaiFENesin 600 MG TABLET.ER (FP) PO PRN (00:33)
[2023-02-20] MEDS ORDERED: MAG HYDROX/AL HYDROX/SIMETH 30 ML UNIT-DOSE CUP PO PRN (00:33)
[2023-02-20] MEDS ORDERED: MAGNESIUM HYDROX 2400MG/30ML ORAL SUSPENSION 30 ML CUP PO PRN (00:33)
[2023-02-20] MEDS ORDERED: ACETAMINOPHEN 325 MG TABLET (FP) PO PRN (00:33)
[2023-02-20] MEDS ORDERED: ONDANSETRON *ODT* 4 MG TABLET SL PRN (00:33)
[2023-02-20] MEDS ORDERED: NICOTINE POLACRILEX 2 MG GUM BUC PRN (00:33)
[2023-02-20] MEDS ORDERED: LOPERAMIDE HCL 2 MG CAPSULE PO PRN (00:33)
[2023-02-20] MEDS ORDERED: hydrOXYzine PAMOATE 25 MG CAPSULE (FP) PO PRN (00:33)
[2023-02-20] MEDS ORDERED: BENZOCAINE/MENTHOL (CHLORASEPTIC ) LOZENGE MM PRN (00:33)
[2023-02-20] MEDS ORDERED: DICYCLOMINE HCL 10 MG CAPSULE PO PRN (00:33)
[2023-02-20] MEDS ORDERED: NALOXONE HCL (KLOXXADO) 8 MG SPRAY NS PRN (00:33)
[2023-02-20] MEDS ORDERED: BENZONATATE 200 MG CAPSULE PO PRN (00:33)
[2023-02-20] MEDS ORDERED: BISMUTH SUBSALICYLATE 524 MG/30 ML PO PRN (00:33)
[2023-02-20] MEDS ORDERED: IBUPROFEN 400 MG TABLET (FP) PO PRN (00:33)
[2023-02-20] MEDS ORDERED: IBUPROFEN 600 MG TABLET (FP) PO PRN (00:33)
[2023-02-20] MEDS ORDERED: POLYETHYLENE GLYCOL (HEALTHYLAX) 3350 17 GM PACKET PO PRN (00:33)
[2023-02-20] MEDS: PRENATAL VITAMINS W/ FOLIC ACID TABLET (FP) PO SCH (10:37)
[2023-02-20] MEDS: NICOTINE 14 MG/24 HOURS TOPICAL PATCH TD SCH (10:37)
[2023-02-20] MEDS: MELATONIN 5 MG TABLETS PO SCH (22:56)
[2023-02-20] MEDS: THIAMINE HCL 100 MG TABLET (FP) PO SCH (22:56)
[2023-02-21] MEDS: PRENATAL VITAMINS W/ FOLIC ACID TABLET (FP) PO SCH (10:24)
[2023-02-21] MEDS: NICOTINE 14 MG/24 HOURS TOPICAL PATCH TD SCH (10:24)
[2023-02-21] MEDS: THIAMINE HCL 100 MG TABLET (FP) PO SCH (22:26)
[2023-02-21] MEDS: MELATONIN 5 MG TABLETS PO SCH (22:26)
[2023-02-22 09:03] VITALS: BP 110/60; PULSE 60; RESP 20; TEMP 98.8
[2023-02-22] MEDS: PRENATAL VITAMINS W/ FOLIC ACID TABLET (FP) PO SCH (10:36)
[2023-02-22] MEDS: NICOTINE 14 MG/24 HOURS TOPICAL PATCH TD SCH (10:36)
== END 2023-02-22 10:03 | disposition other institution (70) | DRG 774 ==
LOC: YASAS 23:15 → Y3N 02-20 01:23
PROVIDERS: ADMIT Allergy & Immunology; ATTEND Surgery
PROC: HZ2ZZZZ Detoxification Services for Substance Abuse Treatment (ICD-10-PCS; principal; 2023-02-20)
DX: F10.20 Alcohol dependence, uncomplicated (principal); F14.20 Cocaine dependence, uncomplicated; F12.20 Cannabis dependence, uncomplicated; F17.210 Nicotine dependence, cigarettes, uncomplicated; M54.50 Low back pain, unspecified; G89.29 Other chronic pain; Z28.310 Unvaccinated for COVID-19; Z28.9 Immunization not carried out for unspecified reason
CPT/HCPCS: 87635; 87811; 93005; 93010

== ENCOUNTER 2023-11-29 06:01 | Emergency (ER) | payer OTHER ==
[2023-11-29 06:07] VITALS: BP 134/79; PULSE 73; RESP 18; TEMP 98.4; BMI 25.7
== END 2023-11-29 06:55 | disposition home or self-care (01) ==
LOC: JER 06:01
DX: S63.692A Other sprain of right middle finger, initial encounter (principal); W21.05XA Struck by basketball, initial encounter; Y93.67 Activity, basketball
CPT/HCPCS: 73130-TC-RT-FY; 99283-25

== ENCOUNTER 2023-12-30 16:39 | Inpatient (IN) | payer OTHER ==
[2023-12-30 17:22] VITALS: BMI 23.1
[2023-12-30] MEDS ORDERED: BENZONATATE 200 MG CAPSULE PO PRN (17:32)
[2023-12-30] MEDS ORDERED: BENZOCAINE/MENTHOL (CHLORASEPTIC ) LOZENGE MM PRN (17:32)
[2023-12-30] MEDS ORDERED: IBUPROFEN 600 MG TABLET (FP) PO PRN (17:32)
[2023-12-30] MEDS ORDERED: MAG HYDROX/AL HYDROX/SIMETH 30 ML UNIT-DOSE CUP PO PRN (17:32)
[2023-12-30] MEDS ORDERED: POLYETHYLENE GLYCOL (HEALTHYLAX) 3350 17 GM PACKET PO PRN (17:32)
[2023-12-30] MEDS ORDERED: guaiFENesin 600 MG TABLET.ER (FP) PO PRN (17:32)
[2023-12-30] MEDS ORDERED: IBUPROFEN 400 MG TABLET (FP) PO PRN (17:32)
[2023-12-30] MEDS ORDERED: ACETAMINOPHEN 325 MG TABLET (FP) PO PRN (17:32)
[2023-12-30] MEDS ORDERED: NICOTINE POLACRILEX 2 MG GUM BUC PRN (17:32)
[2023-12-30] MEDS ORDERED: hydrOXYzine PAMOATE 25 MG CAPSULE (FP) PO PRN (17:32)
[2023-12-30] MEDS ORDERED: MAGNESIUM HYDROX 2400MG/30ML ORAL SUSPENSION 30 ML CUP PO PRN (17:32)
[2023-12-30] MEDS ORDERED: LOPERAMIDE HCL 2 MG CAPSULE PO PRN (17:32)
[2023-12-30] MEDS ORDERED: NICOTINE POLACRILEX 2 MG LOZENGE BC PRN (17:32)
[2023-12-30] MEDS: TUBERCULIN PPD 5 TU/0.1ML SYRINGE (IN PATIENT USE ONLY) ID ONE (21:56)
[2023-12-30] MEDS: THIAMINE 100 MG TABLET PO SCH (22:51)
[2023-12-30] MEDS: MELATONIN 5 MG TABLETS PO SCH (22:51)
[2023-12-31 09:43] LABS: HEMATOCRIT 42.2 % (35.4-49); HEMOGLOBIN 14.1 GM/dL (11.7-16.9); MCH 29.7 pg (25.7-33.7); MCHC 33.3 g/dl (32.0-35.9); MEAN PLT VOLUME 8.5 fl (7.5-11.1); PLATELET COUNT 178 10^3/uL (134-434); RBC 4.74 M/mm3 (4.00-5.60); RDW 13.9 % (11.9-15.9); WHITE BLOOD COUNT 4.4 K/mm3 (4.0-10.0)
[2023-12-31 09:45] LABS: CHLORIDE 107 mmol/L (98-107); POTASSIUM 4.2 mmol/L (3.5-5.1); SODIUM 141 mmol/L (136-145)
[2023-12-31 09:47] LABS: CALCIUM 8.4 mg/dL (8.5-10.1)
[2023-12-31 09:48] LABS: ALBUMIN 3.2 g/dl (3.4-5.0); ANION GAP 6 mmol/L (4-13); BLOOD UREA NITROGEN 15.7 mg/dL (7-18); CO2 29 mmol/L (21-32); GLUCOSE,RANDOM 104 mg/dL (74-106)
[2023-12-31 09:51] LABS: CREATININE 0.8 mg/dL (0.55-1.3); SGOT/AST 12 U/L (15-37); SGPT/ALT 16 U/L (13-61)
[2023-12-31 09:52] LABS: TOT PROT 5.6 g/dl (6.4-8.2)
[2023-12-31 09:53] LABS: BILIRUBIN,TOTAL 0.2 mg/dL (0.2-1)
[2023-12-31 09:54] LABS: ALK PHOS 61 U/L (45-117)
[2023-12-31] MEDS: PRENATAL VITAMINS W/ FOLIC ACID TABLET (FP) PO SCH (09:56)
[2023-12-31 10:14] LABS: SYPHILIS W/ RPR CONF NON-REACTIVE (NONREACTIVE)
[2024-01-01 18:16] VITALS: BP 109/70; PULSE 61; RESP 18; TEMP 97.8
== END 2024-01-02 10:08 | disposition left against medical advice (07) | DRG 770 ==
LOC: YASAS 16:39 → Y3NR 17:57 → Y3E 01-01 18:01
PROVIDERS: ADMIT Allergy & Immunology; ATTEND Psychiatry & Neurology Pain Medicine
PROC: HZ42ZZZ Group Counseling for Substance Abuse Treatment, Cognitive-Behavioral (ICD-10-PCS; principal; 2023-12-30)
DX: F10.20 Alcohol dependence, uncomplicated (principal); F16.20 Hallucinogen dependence, uncomplicated; F12.20 Cannabis dependence, uncomplicated; F17.210 Nicotine dependence, cigarettes, uncomplicated; M54.50 Low back pain, unspecified; G89.29 Other chronic pain
CPT/HCPCS: 36415; 80053; 80305; 80307; 85027; 86780; 86803; 87811

== ENCOUNTER 2024-01-15 11:55 | Emergency (ER) | payer OTHER ==
[2024-01-15 12:22] VITALS: BP 128/72; PULSE 82; RESP 18; TEMP 98.6; BMI 24.4
[2024-01-15 15:13] LABS: THROAT:GRP A STREP NOT DETECTED (NOTDETECTED)
== END 2024-01-15 16:16 | disposition home or self-care (01) ==
LOC: JER 11:55
DX: J02.9 Acute pharyngitis, unspecified (principal); M54.2 Cervicalgia
CPT/HCPCS: 0241U-QW; 87070; 87651; 99283-25

== ENCOUNTER 2024-01-16 18:22 | Emergency (ER) | payer OTHER ==
[2024-01-16 18:32] VITALS: RESP 16; BMI 24.4
[2024-01-16 21:02] VITALS: BP 133/81; PULSE 61; TEMP 98.7
[2024-01-16 21:04] LABS: BASO % 0.4 % (0-2.0); EOS % 1.7 % (0-4.5); HEMATOCRIT 42.5 % (35.4-49); HEMOGLOBIN 14.3 GM/dL (11.7-16.9); LYMPH % 47.6 % (8-40); MCH 30.1 pg (25.7-33.7); MCHC 33.6 g/dl (32.0-35.9); MEAN CELL VOLUME 89.4 fl (80-96); MEAN PLT VOLUME 8.8 fl (7.5-11.1); NEUT % 38.3 % (42.8-82.8); PLATELET COUNT 177 10^3/uL (134-434); RBC 4.76 M/mm3 (4.00-5.60); RDW 14.1 % (11.9-15.9); WHITE BLOOD COUNT 5.7 K/mm3 (4.0-10.0)
[2024-01-16 21:18] LABS: POTASSIUM 4.2 mmol/L (3.5-5.1)
[2024-01-16 21:20] LABS: ALBUMIN 3.8 g/dl (3.4-5.0)
[2024-01-16 21:21] LABS: BLOOD UREA NITROGEN 17.2 mg/dL (7-18)
[2024-01-16 21:24] LABS: CREATININE 0.9 mg/dL (0.55-1.3)
[2024-01-16 21:35] LABS: BILIRUBIN,TOTAL 0.5 mg/dL (0.2-1); TOT PROT 6.6 g/dl (6.4-8.2)
== END 2024-01-16 22:19 | disposition short-term general hospital (02) ==
LOC: JER 18:22
DX: R53.1 Weakness (principal)
CPT/HCPCS: 36415; 80053; 85025; 99285-25

== ENCOUNTER 2024-05-15 06:14 | Emergency (ER) | payer OTHER ==
[2024-05-15 06:30] VITALS: BP 130/72; PULSE 83; RESP 17; TEMP 98.4; BMI 22.1
== END 2024-05-15 12:41 | disposition home or self-care (01) ==
LOC: JER 06:14
DX: F10.20 Alcohol dependence, uncomplicated (principal)
CPT/HCPCS: 99283-25